=== PATIENT | male | born 1985 | race Caucasian/White ===

== ENCOUNTER 2016-05-16 06:10 | Day surgery (SDC) | payer OTHER ==
[2016-05-16] MEDS ORDERED: ACETAMINOPHEN 1,000 MG/100 ML 100 ML IV ONE (06:27)
[2016-05-16] MEDS ORDERED: ceFAZolin 2 GM/50 ML 50 ML IV ONE (06:27)
[2016-05-16] MEDS ORDERED: LACTATED RINGERS 1,000 ML IV ONE ×2 (06:45→08:10)
[2016-05-16] MEDS ORDERED: LIDOCAINE 1% 50 ML MDV SUBQ ONE ×2 (07:48)
[2016-05-16] MEDS ORDERED: BUPIVACAINE 0.25% PF 30 ML VIAL SUBQ ONE ×2 (07:48)
[2016-05-16] MEDS ORDERED: LIDOCAINE-MPF 2% 5 ML VIAL IM ONE (08:00)
[2016-05-16] MEDS ORDERED: fentaNYL 100 MCG/2 ML VIAL IVP ONE (08:00)
[2016-05-16] MEDS ORDERED: PROPOFOL 200 MG/20 ML VIAL IVP ONE (08:00)
[2016-05-16] MEDS ORDERED: oxyCOD/ACETAMIN 5 MG/325 MG TABLET PO ONE (08:40)
[2016-05-16] MEDS ORDERED: fentaNYL 100 MCG/2 ML VIAL ONE (08:53)
== END 2016-05-16 06:11 | disposition home or self-care (01) ==
PROC: 0PSV35Z Reposition Left Finger Phalanx with External Fixation Device, Percutaneous Approach (ICD-10-PCS; principal; 2016-05-16 07:30)
DX: S62.631A Displaced fracture of distal phalanx of left index finger, initial encounter for closed fracture (principal); W23.0XXA Caught, crushed, jammed, or pinched between moving objects, initial encounter; Y93.73 Activity, racquet and hand sports; Y92.39 Other specified sports and athletic area as the place of occurrence of the external cause; Y99.8 Other external cause status
CPT/HCPCS: 26756; A9270; C1713; J0131; J0690; J7120

== ENCOUNTER 2016-12-15 15:16 | Emergency (ER) | payer OTHER ==
[2016-12-15 15:29] VITALS: BP 135/77
--- NOTE | 2016-12-15 16:00 | ED Physician Documentation ---
PD HPI UPPER EXT INJURY - Stated complaint Stated Complaint: LAC L INDEX FINGER - Chief complaint Chief Complaint: Laceration - History obtained from History obtained from: Patient - History of Present Illness Location: Left, Finger (index) Type of injury: Laceration Where injury occurred: Home Timing - onset: How many hours ago (2) Timing - duration: Hours (2) Timing - details: Abrupt onset Pain level max: 2 Pain level now: 1 Improved by: Rest Worsened by: Moving, Palpating Associated symptoms: No: Weakness, Numbness, Tingling, Swelling, Discolored - Additonal information Additional information: Accidental laceration to the tip of the left index finger with a knife today. Pt is right handed Review of Systems Neurologic: denies: Focal weakness, Numbness PD PAST MEDICAL HISTORY - Past Medical History Past Medical History: Yes Cardiovascular: None Endocrine/Autoimmune: None GI: None : None HEENT: None Psych: None Musculoskeletal: None Derm: Eczema - Past Surgical History Past Surgical History: Yes Ortho: Other - Present Medications Home Medications: Ambulatory Orders Medication Instructions Recorded Confirmed No Known Home Medications [No 12/15/16 12/15/16 Known Home Medications] - Allergies Allergies/Adverse Reactions: Allergies Allergy/AdvReac Type Severity Reaction Status Date / Time No Known Drug Allergies Allergy Verified 12/15/16 15:49 - Social History Does the pt smoke?: No Smoking Status: Never smoker - Immunizations Immunizations are current?: Yes Immunizations: TDAP current <10years PD ED PE NORMAL - Vitals Vital signs reviewed: Yes - General General: Alert and oriented X 3, No acute distress - Derm Derm: Warm and dry - Extremities Extremities: Other (Flap laceration tip of L index finger. NVI. No bleeding. superficial) - Neuro Neuro: Alert and oriented X 3 Results - Vitals Vitals: Vital Signs - 24 hr 12/15/16 15:24 Temperature 36.5 C Heart Rate 80 Respiratory 16 Rate Blood Pressure 135/77 H O2 Saturation 99 Oxygen O2 Source Room air Procedures - Laceration (location) L index Length in cm: 1 Wound type: Curved, Flap, Superficial, Clean Wound Preparation: Irrigated copiously NS Skin layer closure: Dermabond Other: Patient tolerated well, No complications, Neurovascular intact, Dressing applied (fingercage), Tetanus UTD Complexity: Simple PD MEDICAL DECISION MAKING - ED course Complexity details: considered differential, d/w patient ED course: Patient with a laceration of the tip of the left index finger. Repaired with Dermabond. Finger cage placed over the wound. Neurovascularly intact. Warnings of infection and instructions on wound care given at bedside. Also counseled on how to minimize scarring. Patient counseled regarding signs and symptoms for which I believe and urgent re-evaluation would be necessary. Patient with good understanding of and agreement to plan and is comfortable going home at this time This document was made in part using voice recognition software. While efforts are made to proofread this document, sound alike and grammatical errors may occur. Departure - Departure Disposition: Home, Self Care Clinical Impression: Finger laceration Qualifiers: Encounter type: initial encounter Finger: index finger Damage to nail status: without damage Foreign body presence: without foreign body Laterality: left Qualified Code(s): S61.211A - Laceration without foreign body of left index finger without damage to nail, initial encounter Condition: Good Instructions: ED Laceration Hand Follow-Up: your,doctor in 1 week [Other] Comments: Keep the wound clean. Return if you worsen. Discharge Date/Time: 12/15/16 16:27
== END 2016-12-15 16:27 | disposition home or self-care (01) ==
LOC: ED 15:16
DX: S61.211A Laceration without foreign body of left index finger without damage to nail, initial encounter (principal); W26.0XXA Contact with knife, initial encounter
CPT/HCPCS: 12001; 99281; 99283

== ENCOUNTER 2017-12-28 11:05 | Emergency (ER) | payer OTHER ==
[2017-12-28] MEDS ORDERED: PROPARACAINE 0.5% OPHTH DROPS 15 ML EACHEYE STA (13:30)
--- NOTE | 2017-12-28 13:31 | ED Physician Documentation ---
PD HPI OPHTHO - Stated complaint Stated Complaint: NAUSEA - Chief complaint Chief Complaint: Heent - History obtained from History obtained from: Patient - History of Present Illness Timing - onset: Other (He went to the head custodian 3 days ago for dry eye on the left. He says that he was topically numbed and they removed some sort of foreign body. Once the numbing wore off he had severe left-sided facial pain with light sensitivity and vomiting. He has no history of migraines or headaches. He denies any pain on the right side. He has had some subjective fevers but nothing measured.) Timing - details: Gradual onset Review of Systems Constitutional: denies: Fever, Chills Eyes: reports: Loss of vision ("slightly blurry"), Photophobia, Irritation Ears: denies: Ear pain Nose: denies: Rhinorrhea / runny nose, Congestion, Sinus pressure / pain Throat: denies: Dental pain / toothache, Sore throat PD PAST MEDICAL HISTORY - Past Medical History Cardiovascular: None Endocrine/Autoimmune: None GI: None : None HEENT: None Psych: None Musculoskeletal: None Derm: Eczema - Past Surgical History Past Surgical History: Yes Ortho: Other - Present Medications Home Medications: Ambulatory Orders Medication Instructions Recorded Confirmed Butalb/Acetaminophen/Caffeine 1 each PO Q4H PRN #10 cap 12/28/17 [Fioricet 50-300-40 mg Capsule] Ondansetron Odt [Zofran] 4 mg TL Q6H PRN #10 tablet 12/28/17 SUMAtriptan [Imitrex] 25 mg PO BID PRN #10 tablet 12/28/17 - Allergies Allergies/Adverse Reactions: Allergies Allergy/AdvReac Type Severity Reaction Status Date / Time No Known Drug Allergies Allergy Verified 12/28/17 11:17 - Social History Does the pt smoke?: No Smoking Status: Never smoker - Immunizations Immunizations are current?: Yes Immunizations: TDAP current <10years PD ED PE NORMAL - Vitals Vital signs reviewed: Yes - General General: Alert and oriented X 3, No acute distress - HEENT HEENT: PERRL, EOMI, Ears normal, Moist mucous membranes, Pharynx benign, Dentition benign, Other (Very mild left periorbital swelling. Mostly the lid itself. There is no floor seen uptake. He does have conjunctival injection.) - Neck Neck: Supple, no meningeal sign, No bony TTP - Neuro Neuro: Alert and oriented X 3, workers compensation claims assistant 2-12 intact Eye Opening: Spontaneous Motor: Obeys Commands Verbal: Oriented GCS Score: 15 - Psych Psych: Normal mood, Normal affect Results - Vitals Vitals: Vital Signs - 24 hr 12/28/17 11:12 Temperature 36.7 C Heart Rate 85 Respiratory 16 Rate Blood Pressure 141/87 H O2 Saturation 97 Oxygen O2 Source Room air PD MEDICAL DECISION MAKING - ED course ED course: He presents with left-sided head and facial pain after optometric foreign body removal. He had no relief with proparacaine installation here. Could be sinus, migraine or cluster headache although the time course seems wrong for cluster headache. We will trial some Imitrex. He actually had pretty significant relief with Imitrex suggesting against other diagnoses. - Sepsis Event Vital Signs: Vital Signs - 24 hr 12/28/17 11:12 Temperature 36.7 C Heart Rate 85 Respiratory 16 Rate Blood Pressure 141/87 H O2 Saturation 97 Oxygen O2 Source Room air Departure - Departure Disposition: Home, Self Care Clinical Impression: Migraine Condition: Good Record reviewed to determine appropriate education?: Yes Instructions: ED Headache Migraine Prescriptions: Butalb/Acetaminophen/Caffeine [Fioricet 50-300-40 mg Capsule] 1 each PO Q4H PRN #10 cap PRN Reason: Headache Ondansetron Odt [Zofran] 4 mg TL Q6H PRN #10 tablet PRN Reason: Nausea / Vomiting SUMAtriptan [Imitrex] 25 mg PO BID PRN #10 tablet PRN Reason: Headache Comments: Call your doctor to arrange a follow-up appointment, make the next available appointment. In the interim, return anytime if worse or if new symptoms develop. Your blood pressure was elevated today on check into the emergency department. This does not mean that you have hypertension, it is a common phenomenon to come to the emergency department and have elevated blood pressure. I recommend that you see your primary care physician within the week to have it rechecked when you are feeling better. Forms: Activity restrictions
[2017-12-28] MEDS ORDERED: SUMAtriptan 6 MG/0.5 ML VIAL SUBQ STA (13:35)
[2017-12-28] MEDS ORDERED: ONDANSETRON ODT 4 MG TABLET TL STA (14:05)
[2017-12-28 15:03] VITALS: BP 138/74
== END 2017-12-28 14:45 | disposition home or self-care (01) ==
LOC: ED 11:05
DX: G43.909 Migraine, unspecified, not intractable, without status migrainosus (principal); Z98.890 Other specified postprocedural states; R03.0 Elevated blood-pressure reading, without diagnosis of hypertension
CPT/HCPCS: 99283; J3490; Q0162

== ENCOUNTER 2017-12-29 09:46 | Emergency (ER) | payer OTHER ==
[2017-12-29] MEDS ORDERED: PROPARACAINE 0.5% OPHTH DROPS 15 ML EACHEYE STA (10:18)
[2017-12-29] MEDS ORDERED: ONDANSETRON ODT 4 MG TABLET TL STA (10:51)
[2017-12-29] MEDS ORDERED: ACETAMINOPHEN 1,000 MG/100 ML 100 ML IV STA (11:34)
--- NOTE | 2017-12-29 11:38 | ED Physician Documentation ---
History of Present Illness - Stated complaint Stated Complaint: EYE SWOLLEN - Chief complaint Chief Complaint: Heent - Additonal information Additional information: hx from pt 32 male had L eye irritation last week saw [facility] and had possible FB removal since then increasing eye pain and redness and now lid swelling seen in ED yesterday as well and no relief with proparacaine and no abrasion with flourescein and better with imitrex so dx migraine sx worse now with NV Review of Systems Constitutional: denies: Fever Eyes: reports: Photophobia, Irritation. denies: Loss of vision, Discharge GI: reports: Nausea. denies: Vomiting PD PAST MEDICAL HISTORY - Past Medical History Past Medical History: Yes Cardiovascular: None Neuro: Migraines Endocrine/Autoimmune: None GI: None : None HEENT: None Psych: None Musculoskeletal: None Derm: Eczema - Past Surgical History Past Surgical History: Yes Ortho: Other - Present Medications Home Medications: Ambulatory Orders Medication Instructions Recorded Confirmed Butalb/Acetaminophen/Caffeine 1 each PO DAILY 12/29/17 12/29/17 [Fioricet 50-300-40 mg Capsule] Ondansetron Odt [Zofran] 4 mg TL Q6H PRN 12/29/17 12/29/17 SUMAtriptan [Imitrex] 25 mg PO ONCE 12/29/17 12/29/17 - Allergies Allergies/Adverse Reactions: Allergies Allergy/AdvReac Type Severity Reaction Status Date / Time No Known Drug Allergies Allergy Verified 12/29/17 10:12 - Social History Does the pt smoke?: No Smoking Status: Never smoker Does the pt drink ETOH?: No Does the pt have substance abuse?: No - Immunizations Immunizations are current?: Yes Immunizations: TDAP current <10years - POLST Patient has POLST: No PD ED PE NORMAL - Vitals Vital signs reviewed: Yes - General General: Alert and oriented X 3 - HEENT HEENT: PERRL, EOMI, Other (L eye injected, upper > lower lid swelling, sub arlyn hemorrhage, pupil reactive but painful, EOMI intact but painful, possibly a slight bit of proptosis,no dc, unable to well visualize fundi 2/2 photophobia mily pressure 17 and 19 ) Results - Vitals Vitals: Vital Signs - 24 hr 12/29/17 12/29/17 09:55 13:13 Temperature 36.4 C L Heart Rate 78 59 L Respiratory 18 18 Rate Blood Pressure 150/95 H 128/76 O2 Saturation 99 100 Oxygen O2 Source Room air - Labs Labs: Laboratory Tests 12/29/17 11:49 Creatinine 1.1 Estimated GFR (MDRD) 78 L - Rads (name of study) CT orbits Radiology: See rad report (no acute, no septal cellulitis) PD MEDICAL DECISION MAKING - ED course ED course: worsening eye inflammation and pain 3rd visit for same ([facility] once our ER twice) no FB no uptake / abrasion on flourescin last two visits normal pressures today not relived with topical ab ? iritis spoke to eye clinic and they will see pt now for full eye exam and further eval - Sepsis Event Vital Signs: Vital Signs - 24 hr 12/29/17 12/29/17 09:55 13:13 Temperature 36.4 C L Heart Rate 78 59 L Respiratory 18 18 Rate Blood Pressure 150/95 H 128/76 O2 Saturation 99 100 Oxygen O2 Source Room air Departure - Departure Disposition: 01 Home, Self Care Clinical Impression: Eye pain Qualifiers: Laterality: left Qualified Code(s): H57.12 - Ocular pain, left eye Condition: Good Comments: The CT scan was fine Your glaucoma test was normal I spoke to the eyeglass frames inspector here and the eye doctor can see you today in clinic We are going to walk you over from the ER to the clinic for further work up of your eye pain
[2017-12-29 12:00] LABS: CREATININE 1.1 mg/dL (0.6-1.2)
[2017-12-29] MEDS ORDERED: IOPAMIDOL-300 100 ML VIAL ONE (12:16)
[2017-12-29] MEDS ORDERED: IOPAMIDOL-300 100 ML VIAL IVP ONE (12:29)
[2017-12-29 13:13] VITALS: BP 128/76
--- NOTE | 2017-12-29 13:34 | CT Report ---
Reason: L eye pain erythema limited EOMI Procedure Date: 12/29/2017 Accession Number: [id number] / [id number] Procedure: CT - Orbits W/ CPT Code: FULL RESULT: EXAM: CT ORBITS WITH CONTRAST EXAM DATE: 12/29/2017 12:33 PM. CLINICAL HISTORY: Left eye pain erythema. Limited EOMI. COMPARISONS: None. TECHNIQUE: Thin-section axial images were acquired of the orbits following administration of intravenous contrast. Post-processing: Coronal and sagittal reformats. Other: 80 mL Isovue 300. In accordance with CT protocol optimization, one or more of the following dose reduction techniques were utilized for this exam: automated exposure control, adjustment of mA and/or KV based on patient size, or use of iterative reconstructive technique. FINDINGS: The lacrimal glands are symmetric in size. No mass is present in either orbit. No enhancing mass is identified along either optic nerve sheath complex in either orbit. The extraocular muscles are symmetric in size. The superior ophthalmic veins are normal and symmetric in size. The cavernous sinuses appear to enhance in symmetric fashion. No suprasellar mass is present. No post-septal inflammatory change is present. The globes have a normal CT appearance. No enhancing mass is identified in the visualized brain. Bilateral maxillary sinus and ethmoid air cell mucosal thickening is present. No expansile lesion is seen involving the wall of either orbit. IMPRESSION: 1. Unremarkable CT scan of the orbits. 2. Paranasal sinus mucosal thickening. [facility]
[2017-12-29] MEDS ORDERED: oxyCODONE 5 MG TABLET PO STA (14:19)
== END 2017-12-29 14:24 | disposition home or self-care (01) ==
LOC: ED 09:46
DX: H57.12 Ocular pain, left eye (principal)
CPT/HCPCS: 36415; 70481; 82565; 96365; 99282; 99283; A9270; J0131; J3490; Q0162; Q9967

== ENCOUNTER 2018-02-16 11:28 | Outpatient (CLI) | payer OTHER | END 2018-02-16 11:29 | disposition home or self-care (01) | LOC: SC 11:28 | PROVIDERS: ATTEND Internal Medicine Pulmonary Disease | DX: G47.30 Sleep apnea, unspecified (principal); G47.8 Other sleep disorders; R06.83 Snoring; R41.89 Other symptoms and signs involving cognitive functions and awareness; G47.10 Hypersomnia, unspecified | CPT/HCPCS: 99203; 99212 ==

== ENCOUNTER 2018-03-30 19:27 | Outpatient (CLI) | payer OTHER | END 2018-03-30 19:28 | disposition home or self-care (01) | LOC: SC 19:27 | PROVIDERS: ATTEND Internal Medicine Pulmonary Disease | DX: G47.33 Obstructive sleep apnea (adult) (pediatric) (principal); G47.61 Periodic limb movement disorder | CPT/HCPCS: 95810 ==

== ENCOUNTER 2018-04-28 12:22 | Day surgery (SDC) | payer OTHER ==
[2018-04-28] MEDS ORDERED: LACTATED RINGERS 1,000 ML IV ONE (13:05)
[2018-04-28] MEDS ORDERED: fentaNYL 250 MCG/5 ML VIAL IVP ONE (13:52)
[2018-04-28] MEDS ORDERED: MIDAZOLAM 2 MG/2 ML VIAL IVP ONE (13:52)
[2018-04-28 14:27] VITALS: BP 123/89
== END 2018-04-28 12:23 | disposition home or self-care (01) ==
LOC: SDS 12:22
PROVIDERS: ATTEND Internal Medicine
PROC: 0DB58ZX Excision of Esophagus, Via Natural or Artificial Opening Endoscopic, Diagnostic (ICD-10-PCS; principal; 2018-04-28 13:00)
DX: K21.9 Gastro-esophageal reflux disease without esophagitis (principal); K44.9 Diaphragmatic hernia without obstruction or gangrene
CPT/HCPCS: 43239; J3010; J7120

== ENCOUNTER 2018-05-11 09:00 | Outpatient (CLI) | payer OTHER | END 2018-05-11 09:01 | disposition home or self-care (01) | LOC: SC 09:00 | PROVIDERS: ATTEND Nurse Practitioner Family | DX: G47.33 Obstructive sleep apnea (adult) (pediatric) (principal); G47.61 Periodic limb movement disorder | CPT/HCPCS: 99212; 99215 ==

== ENCOUNTER 2018-07-01 08:15 | Outpatient (CLI) | payer OTHER | END 2018-07-01 08:16 | disposition home or self-care (01) | LOC: SC 08:15 | PROVIDERS: ATTEND Nurse Practitioner Family | DX: G47.33 Obstructive sleep apnea (adult) (pediatric) (principal) | CPT/HCPCS: 99212; 99214 ==